=== PATIENT | male | born 1945 | race Caucasian/White ===

== ENCOUNTER → 2017-05-22 | Outpatient (CLI) | payer OTHER | END | disposition home or self-care (01) | LOC: LAB 13:37 | PROVIDERS: ATTEND Surgery | DX: Z02.1 Encounter for pre-employment examination (principal) | CPT/HCPCS: 36415; 86706; 86735; 86762; 86765; 86787 ==

== ENCOUNTER 2017-09-28 08:04 | Day surgery (SDC) | payer BC ==
[2017-09-24 10:02] LABS: Basophils # (auto) 0.1 uL; Hemoglobin 8.7 g/dL (13.5-17.5); Nucleated Red Blood Cells % 0.1 %
[2017-09-24 10:04] LABS: Eosinophils # (auto) 0.8 uL; Eosinophils % (auto) 8.3 % (0.0-7.0); Hematocrit 28.9 % (41.0-53.0); Lymphocytes # (auto) 1.8 uL; Lymphocytes % (auto) 18.9 % (10.0-50.0); Mean Corpuscular Hemoglobin 19.8 pg (28.0-32.0); Monocytes # (auto) 0.8 uL; Monocytes % (auto) 8.8 % (0.0-12.0); Platelet Count (auto) 297 10^3/uL (140-450); Red Blood Cells 4.37 10^6/uL (4.5-5.90); Red Cell Distribution Width 18.2 % (11.8-14.3); White Blood Cell 9.5 10^3/uL (4.4-10.8)
[2017-09-24 10:14] LABS: INR 1.03 (0.9-1.15); Prothrombin Time 11.2 sec (9.37-12.3)
[~2017-09-28] VITALS: Ht 172.7 cm; Wt 108.9 kg
[~2017-09-28 08:04] MED LIST: ASPI81TA27 PO; INSLANTI SC; LISI10TA6 PO; METF-372 PO
[2017-09-28] MEDS ORDERED: SODIUM CHLORIDE LOCK 10 ML ONE (08:17)
[2017-09-28] MEDS ORDERED: diphenhdrAMINE HCL 50 MG/1 ML VL ONE (08:18)
[2017-09-28] MEDS: MIDAZOLAM HCL 5 MG/ML-1ML VIAL ONE ×2 (08:54→09:01)
[2017-09-28] MEDS: fentaNYL CITRATE 100 MCG/2 ML VL ONE ×2 (08:54→09:01)
[2017-09-28 09:19] VITALS: BP 104/77
== END 2017-09-28 10:05 | disposition home or self-care (01) ==
LOC: GI 08:04
PROVIDERS: ATTEND Internal Medicine Gastroenterology
DX: Z12.11 Encounter for screening for malignant neoplasm of colon (principal); K64.8 Other hemorrhoids; K57.30 Diverticulosis of large intestine without perforation or abscess without bleeding; E66.9 Obesity, unspecified; Z68.36 Body mass index [BMI] 36.0-36.9, adult; E11.9 Type 2 diabetes mellitus without complications; Z90.49 Acquired absence of other specified parts of digestive tract; Z87.891 Personal history of nicotine dependence
CPT/HCPCS: 36415; 45378; 82962; 85025; 85610; J2250; J3010; J7030; 99152; 99153

== ENCOUNTER 2019-09-14 07:33 | Inpatient (IN) | payer BC, MEDICARE ==
[~2019-09-14] VITALS: Ht 172.7 cm; Wt 104.1 kg
[~2019-09-14 07:33] MED LIST changes: +ASPI-404 PO; -ASPI81TA27 PO
[2019-09-14] MEDS ORDERED: ACETAMINOPHEN 650 mg PER 20 mL UD GT ONE (07:45)
[2019-09-14 08:11] LABS: Basophils # (auto) 0.1 uL; Basophils % (auto) 0.3 % (0.0-2.0); Eosinophils # (auto) 0 uL; Eosinophils % (auto) 0.3 % (0.0-7.0); Hematocrit 41.3 % (41.0-53.0); Hemoglobin 13.7 g/dL (13.5-17.5); Lymphocytes # (auto) 0.6 uL; Lymphocytes % (auto) 3.3 % (10.0-50.0); Mean Corpuscular Hemoglobin 30.2 pg (28.0-32.0); Mean Corpuscular Hgb Conc. 33.2 g/dL (32.0-36.0); Mean Corpuscular Volume 90.9 fL (80.0-100.0); Monocytes # (auto) 0.9 uL; Monocytes % (auto) 5.2 % (0.0-12.0); Neutrophils # (auto) 15.7 uL; Neutrophils % (auto) 90.9 % (37.0-80.0); Platelet Count (auto) 211 10^3/uL (140-450); Red Blood Cells 4.55 10^6/uL (4.5-5.90); Red Cell Distribution Width 14.5 % (11.8-14.3); White Blood Cell 17.3 10^3/uL (4.4-10.8)
[2019-09-14 08:15] LABS: Urine Bacteria NONE SEEN /hpf (None Seen); Urine Blood Negative /uL (Negative); Urine Specific Gravity 1.023 (1.001-1.035); Urine WBC 1 /hpf (0 - 3)
[2019-09-14] MEDS ORDERED: SODIUM CHLORIDE 0.9% 1,000 ML IV ONE ×2 (08:30→08:44)
[2019-09-14 08:32] LABS: Alanine Aminotransferase 59 U/L (16-61); Albumin 3.3 g/dL (3.4-5.0); Anion Gap 8 (5-15); Aspartate Aminotransferase 41 U/L (15-37); BUN/Creatinine Ratio 15.8; Blood Urea Nitrogen 15 mg/dL (7-18); Calcium 8.8 mg/dL (8.5-10.1); Carbon Dioxide 23 mmol/L (21-32); Chloride 103 mmol/L (98-107); GFR African American 100 mL/min; GFR Non-African American 83 mL/min; Glucose 209 mg/dL (74-106); Potassium 3.7 mmol/L (3.5-5.1); Sodium 134 mmol/L (136-145)
[2019-09-14 08:40] LABS: Alkaline Phosphatase 109 U/L (45-117); Bilirubin, Total 0.6 mg/dL (0.2-1.0); Total Protein 8.3 g/dL (6.4-8.2)
[2019-09-14] MEDS ORDERED: SODIUM CHLORIDE 0.9% 500 ML IV ONE (08:44)
[2019-09-14] MEDS ORDERED: IBUPROFEN 800 MG TAB PO ONE (09:15)
[2019-09-14] MEDS ORDERED: CEFTRIAXONE SODIUM 2 GM in D5W 5% 50 ML IV ONE (09:15)
[2019-09-14] MEDS ORDERED: cefTRIAXone 1GM/50ML D5W 100 ML IV ONE (09:32)
[2019-09-14] MEDS: cefTRIAXone 1GM/50ML D5W 50 ML IV SCH ×2 (09:41→11:24)
[2019-09-14] MEDS ORDERED: SODIUM CHLORIDE 0.9% 1,000 ML IV SCH (12:41)
[2019-09-14] MEDS ORDERED: DEXTROSE (50%) 50ML SYRG IV PRN (12:45)
[2019-09-14] MEDS ORDERED: PROMETHAZINE HCL 25 MG/ML 1ML IV PRN (12:45)
[2019-09-14] MEDS ORDERED: LEVOFLOXACIN 500MG 100 ML IV ONE (12:45)
[2019-09-14] MEDS ORDERED: NITROGLYCERIN 0.4 MG SL TAB SL PRN (12:45)
[2019-09-14] MEDS ORDERED: TEMAZEPAM 15 MG CAP PO PRN (12:45)
[2019-09-14] MEDS ORDERED: ACETAMINOPHEN 500 MG TAB PO PRN (12:45)
[2019-09-14] MEDS ORDERED: ALBUTEROL SULF 2.5 MG/0.5ML(0.5%) NEB SOLN NEB PRN (12:45)
[2019-09-14] MEDS ORDERED: traMADol HCL 50 MG TAB PO PRN (12:45)
[2019-09-14] MEDS ORDERED: LACTULOSE 20Gm/30ML SOLN PO PRN (12:45)
[2019-09-14] MEDS ORDERED: MORPHINE SULF INJ 2 MG/ML SYRINGE 1ML IV PRN (12:45)
[2019-09-14] MEDS: SODIUM CHLORIDE 0.9% 1,000 ML IV SCH (13:29)
--- NOTE | 2019-09-14 14:50 | NUR ---
Telemetry admit from ER A[place]LE[place] admitted to Telemetry unit after SBAR received. Patient oriented to TEODORO RODRIGUEZ, primary RN, unit, room, bed, and unit policies regarding patient care and visiting hours. Patient now on continuous telemetry monitoring, tele box # [id number] and telemetry reading on arrival to unit is . Patient placed on bedside oxygen, weighed by bed scale and encouraged to call if they need something. All questions and concerns addressed, patient verbalized understanding.
[2019-09-14] MEDS: CLINDAMYCIN 600MG IV 50 ML IV SCH ×2 (15:36→21:04)
[2019-09-14] MEDS: MAGNESIUM SULFATE 1GM/100ML 100 ML IV SCH ×2 (16:14→17:19)
[2019-09-14 17:00] VITALS: BP 110/69
[2019-09-14] MEDS ORDERED: MAGNESIUM SULFATE 1GM/100ML 100 ML IV SCH (17:00)
[2019-09-14] MEDS: InsuLIN REG 1unit/0.01ml Soln (100units/ml) SC SCH ×2 (17:20→21:04)
[2019-09-14] MEDS: ACCU-CHEK COMFORT CURVE STRIP VI SCH ×2 (17:20→21:05)
[2019-09-14] MEDS ORDERED: ATO40T PO (17:25)
[2019-09-14] MEDS ORDERED: INSLANTI SC ×2 (17:25)
[2019-09-14] MEDS ORDERED: LISI-275 PO (17:25)
[2019-09-14] MEDS ORDERED: INSUINJ18 SC (17:25)
--- NOTE | 2019-09-14 19:30 | NUR ---
Opening Shift Note: A&Ox4, resting in bed. Room air, pain level 0/10, and ambulates independently without assistive devices. Bed locked in lowest position, side rails up x3, and call light within reach. IV 18 g in right forearm running NS at 100 ml/hr inserted on 09/14/19. Skin intact: left lower extremity presents with slight redness; no open wounds noted. Bilateral lower extremities +2 pitting edema; no open wounds. POC discussed and questions answered. Will continue to round prn.
--- NOTE | 2019-09-14 21:00 | NUR ---
Sputum culture sent to lab via bullet system.
[2019-09-14 21:58] VITALS: BP 127/72
--- NOTE | 2019-09-14 22:08 | NUR ---
Respiratory note: PT SEEN AND ASSESSED FOR PRN MED NEB TX AT 2208. TX NOT INDICATED AT THIS TIME. PT DISPLAYING NO SIGNS OF RESPIRATORY DISTRESS, HE STATES THAT HE HASN'T HAD ANY ISSUES BREATHING EXCEPT WHEN HE LIES DOWN FLAT. PT ALSO STATED HE IS USED TO SLEEPING IN A RECLINING CHAIR. BREATH SOUNDS WERE CLEAR AND DIMINISHED. HR 96 RR 18 POX 95% ON ROOM AIR.
[2019-09-15] VITALS (7 sets, daily range): BP systolic 109–138; BP diastolic 58–77
[2019-09-15] MEDS: SODIUM CHLORIDE 0.9% 1,000 ML IV SCH ×3 (01:30→16:21)
[2019-09-15 05:58] LABS: Basophils # (auto) 0 uL; Basophils % (auto) 0.2 % (0.0-2.0); Eosinophils # (auto) 0.1 uL; Eosinophils % (auto) 0.3 % (0.0-7.0); Hematocrit 35.3 % (41.0-53.0); Hemoglobin 11.8 g/dL (13.5-17.5); Lymphocytes # (auto) 1.4 uL; Lymphocytes % (auto) 6.6 % (10.0-50.0); Mean Corpuscular Hemoglobin 30.2 pg (28.0-32.0); Mean Corpuscular Hgb Conc. 33.3 g/dL (32.0-36.0); Mean Corpuscular Volume 90.7 fL (80.0-100.0); Monocytes # (auto) 1.5 uL; Monocytes % (auto) 7.3 % (0.0-12.0); Neutrophils # (auto) 17.9 uL; Neutrophils % (auto) 85.6 % (37.0-80.0); Platelet Count (auto) 169 10^3/uL (140-450); Red Blood Cells 3.89 10^6/uL (4.5-5.90); Red Cell Distribution Width 14.5 % (11.8-14.3); White Blood Cell 20.9 10^3/uL (4.4-10.8)
[2019-09-15] MEDS: InsuLIN REG 1unit/0.01ml Soln (100units/ml) SC SCH ×4 (05:58→21:54)
[2019-09-15] MEDS: ACCU-CHEK COMFORT CURVE STRIP VI SCH ×4 (05:58→21:53)
[2019-09-15] MEDS: CLINDAMYCIN 600MG IV 50 ML IV SCH ×3 (05:58→21:53)
--- NOTE | 2019-09-15 08:24 | NUR ---
Opening Shift Note Assumed care of patient, awake and alert, oriented x 4 and verbally responsive. Respiratory even and unlabored. No S/S of distress/SOB or pain. Skin is warm and dry to touch. No s/s of hyperglycemia or hypoglycemia noted. Instructed on POC and to call for assist PRN, will continue to monitor for changes Q1hr and PRN.
[2019-09-15] MEDS: ENOXAPARIN SOD 40 MG/0.4 ML SYRINGE SC SCH (09:11)
[2019-09-15] MEDS ORDERED: LEVOFLOXACIN 500MG 100 ML IV SCH (10:00)
--- NOTE | 2019-09-15 13:40 | NUR ---
Respiratory note: ASSESSED PT FOR PRN MED NEB AT THIS TIME, PT DENIES SOB AT THIS TIME, NO RESP DISTRESS NOTED, NO TX INDICATED, PULSE OX 92% ON RA, HR 189, RR 18, BILATERAL BS CLEAR. Informed pt to have RT paged if becomes SOB.
[2019-09-15] MEDS ORDERED: MAGNESIUM SULFATE 1GM/100ML 100 ML IV ONE (15:30)
[2019-09-15] MEDS ORDERED: LEVOFLOXACIN 250MG 50 ML IV ONE (15:30)
--- NOTE | 2019-09-15 19:15 | NUR ---
Respiratory note: AT BESIDE TO ASSESS PT FOR PRN TX, TX NOT INDICATED AT THIS TIME. PT ALERT AND ORIENTED. BS ARE CLEAR T/O. POX 94-96% ON RA , HR 90S. PT AWARE I CAN BE PAGED AT ANY TIME. RT NAME AND PAGER ASSIGNMENT WRITTEN ON PTS ROOM BOARD. WILL CONTINUE TO MONITOR.
--- NOTE | 2019-09-15 19:22 | NUR ---
Opening Shift Note Received report and assumed care of patient. Patient is awake and alert. No signs or symptoms of distress noted, patient denies pain. Instructed patient on plan of care and to call for assistance as needed, call light within reach. Will continue to monitor.
[2019-09-15] MEDS: INSULIN LANTUS (GLARGINE) 1 /0.01ml (100units/ml) SC SCH (21:53)
[2019-09-16 05:00] VITALS: BP 108/68
[2019-09-16 05:38] LABS: Basophils # (auto) 0 uL; Basophils % (auto) 0.1 % (0.0-2.0); Eosinophils # (auto) 0.3 uL; Eosinophils % (auto) 2.3 % (0.0-7.0); Hemoglobin 11.7 g/dL (13.5-17.5); Lymphocytes # (auto) 1.3 uL; Lymphocytes % (auto) 8.3 % (10.0-50.0); Mean Corpuscular Hgb Conc. 33.3 g/dL (32.0-36.0); Monocytes % (auto) 6.4 % (0.0-12.0); Neutrophils # (auto) 12.8 uL; Neutrophils % (auto) 82.9 % (37.0-80.0); Platelet Count (auto) 183 10^3/uL (140-450); Red Blood Cells 3.89 10^6/uL (4.5-5.90); Red Cell Distribution Width 14.3 % (11.8-14.3); White Blood Cell 15.4 10^3/uL (4.4-10.8)
[2019-09-16] MEDS: SODIUM CHLORIDE 0.9% 1,000 ML IV SCH ×3 (05:40→22:23)
[2019-09-16] MEDS: CLINDAMYCIN 600MG IV 50 ML IV SCH (05:41)
[2019-09-16 05:56] LABS: Potassium 3.9 mmol/L (3.5-5.1)
[2019-09-16 06:03] LABS: Albumin 2.5 g/dL (3.4-5.0); BUN/Creatinine Ratio 14.1; Bilirubin, Total 0.6 mg/dL (0.2-1.0); Calcium 8.5 mg/dL (8.5-10.1); Total Protein 6.9 g/dL (6.4-8.2)
[2019-09-16] MEDS: ACCU-CHEK COMFORT CURVE STRIP VI SCH ×4 (06:40→22:22)
[2019-09-16] MEDS: InsuLIN REG 1unit/0.01ml Soln (100units/ml) SC SCH ×4 (06:41→22:22)
--- NOTE | 2019-09-16 08:00 | NUR ---
Morning note patient resting in bed with even and unlabored respirations, no distress noted. Instructed patient on POC, fall precautions and to call for assistance as needed. Patient verbalized understanding. Fall precautions in place with call light within reach. Will continue to monitor q1hr & PRN.
[2019-09-16 08:41] VITALS: BP 117/57
[2019-09-16] MEDS: ENOXAPARIN SOD 40 MG/0.4 ML SYRINGE SC SCH (09:16)
[2019-09-16] MEDS: LEVOFLOXACIN 750MG 150 ML IV SCH (09:16)
[2019-09-16] MEDS: INSULIN LANTUS (GLARGINE) 1 /0.01ml (100units/ml) SC SCH ×2 (09:18→22:22)
--- NOTE | 2019-09-16 10:02 | NUR ---
Patient sitting in chair at bedside respirations even and unlabored, no distress noted. Call light within reach.
--- NOTE | 2019-09-16 10:38 | NUR ---
was at bedside - Dr. Shaikh HERNADEZ discussed with this RN.
--- NOTE | 2019-09-16 11:00 | NUR ---
Respiratory note: PT ASSESSED FOR PRN MED NEB. PT ON ROOM AIR SP02 94%. AWAKE ALERT AND RESPONSIVE. NO TREATMENT INDICATED AT THIS TIME.
[2019-09-16 13:00] VITALS: BP 122/66
[2019-09-16 17:00] VITALS: BP 128/63
--- NOTE | 2019-09-16 17:37 | NUR ---
Patient sitting in chair at bedside respirations even and unlabored, no distress noted. Call light within reach.
--- NOTE | 2019-09-16 18:47 | NUR ---
Closing note patient sitting in chair with even and unlabored respirations, no distress noted. Call light within reach.
--- NOTE | 2019-09-16 18:59 | NUR ---
Respiratory note: PT RECIEVED ON RA AT THIS TIME. PT IS IN NO RESP DISTRESS. PT AWAKE AND ALERT. PRN TX NOT INDICATED. SPO2 92%, HR 74, RR 20. BS CLR/DIM T/O.
--- NOTE | 2019-09-16 19:30 | NUR ---
Care endorsed to MARI Bloom.
--- NOTE | 2019-09-16 19:40 | NUR ---
Opening Shift Note Received report and assumed care of patient. Patient is awake and alert. No signs or symptoms of distress noted, patient currently denies pain. Instructed patient on plan of care and to call for assistance as needed, call light within reach. Will continue to monitor.
[2019-09-16 21:18] VITALS: BP 151/88
[2019-09-16 22:40] VITALS: BP 135/73
[2019-09-17 04:53] VITALS: BP 130/63
[2019-09-17 05:31] LABS: Basophils # (auto) 0 uL; Basophils % (auto) 0.4 % (0.0-2.0); Eosinophils # (auto) 0.5 uL; Eosinophils % (auto) 4.7 % (0.0-7.0); Hematocrit 38.2 % (41.0-53.0); Lymphocytes # (auto) 1.2 uL; Lymphocytes % (auto) 11.4 % (10.0-50.0); Mean Corpuscular Hemoglobin 30.7 pg (28.0-32.0); Mean Corpuscular Hgb Conc. 34.1 g/dL (32.0-36.0); Mean Corpuscular Volume 89.9 fL (80.0-100.0); Monocytes # (auto) 0.7 uL; Monocytes % (auto) 6.4 % (0.0-12.0); Neutrophils # (auto) 8.3 uL; Neutrophils % (auto) 77.1 % (37.0-80.0); Nucleated Red Blood Cells % 0.1 %; Platelet Count (auto) 219 10^3/uL (140-450); Red Blood Cells 4.25 10^6/uL (4.5-5.90); Red Cell Distribution Width 14.2 % (11.8-14.3); White Blood Cell 10.8 10^3/uL (4.4-10.8)
[2019-09-17] MEDS: ACCU-CHEK COMFORT CURVE STRIP VI SCH ×2 (06:22→11:35)
[2019-09-17] MEDS: InsuLIN REG 1unit/0.01ml Soln (100units/ml) SC SCH ×2 (06:23→11:39)
--- NOTE | 2019-09-17 08:00 | NUR ---
Morning note patient sitting in chair at bedside with even and unlabored respirations, no distress noted. Instructed patient on POC, fall precautions and to call for assistance as needed. Patient verbalized understanding. Fall precautions in place with call light within reach. Will continue to monitor q1hr & PRN.
[2019-09-17] MEDS: ENOXAPARIN SOD 40 MG/0.4 ML SYRINGE SC SCH (08:03)
[2019-09-17] MEDS: LEVOFLOXACIN 750MG 150 ML IV SCH (08:04)
[2019-09-17] MEDS: INSULIN LANTUS (GLARGINE) 1 /0.01ml (100units/ml) SC SCH (08:05)
[2019-09-17 08:38] VITALS: BP 124/72
--- NOTE | 2019-09-17 10:40 | NUR ---
Respiratory note: Assessed pt for prn medneb tx. HR 69, RR 16, POX 96% on room air. Breath sounds clear throughout. Pt denies any SOB, sitting up in chair, no s/s of respiratory distress. Medneb tx not indicated at this time. Advised pt to call for RT if needed.
--- NOTE | 2019-09-17 12:40 | NUR ---
was at bedside - Dr. Landrum
[2019-09-17 12:49] VITALS: BP 133/69
[2019-09-17] MEDS ORDERED: LEVO750T2 PO (13:10)
--- NOTE | 2019-09-17 14:35 | NUR ---
Discharge Discharge education and paperwork provided to the patient per MD order. Patient verbalized understanding. IV removed with clean technique, catheter intact. Dressing applied. Patient tolerated well, no trauma to site. Telemonitor removed and returned. Patient reports having all personal belongings. Respirations even and unlabored, no distress noted. Patient refused wheelchair. Patient ambulated with a steady gait to private vehicle. Patient's spouse to transport patient home.
== END 2019-09-17 14:37 | disposition home or self-care (01) | DRG 871 ==
LOC: ER 07:33 → TELE 07:34 → EEVIPCON 07:34 → TELE-WESTW 14:27
PROVIDERS: ADMIT Internal Medicine; ATTEND Internal Medicine
DX: A41.9 Sepsis, unspecified organism (principal); J18.1 Lobar pneumonia, unspecified organism; E44.1 Mild protein-calorie malnutrition; L03.116 Cellulitis of left lower limb; E87.1 Hypo-osmolality and hyponatremia; N39.0 Urinary tract infection, site not specified; E11.65 Type 2 diabetes mellitus with hyperglycemia; E83.42 Hypomagnesemia; N40.0 Benign prostatic hyperplasia without lower urinary tract symptoms; E66.9 Obesity, unspecified; E78.5 Hyperlipidemia, unspecified; B96.20 Unspecified Escherichia coli [E. coli] as the cause of diseases classified elsewhere; I10 Essential (primary) hypertension; F41.9 Anxiety disorder, unspecified; Z87.891 Personal history of nicotine dependence; Z90.49 Acquired absence of other specified parts of digestive tract; Z68.34 Body mass index [BMI] 34.0-34.9, adult
CPT/HCPCS: 36415; 71045; 71046; 71250; 80053; 80061; 81001; 82962; 83036; 83605; 83735; 84443; 84484; 85025; 85652; 87040; 87070; 87086; 87088; 87186; 87205; 87804; 93971; 96361; 96365; 96366; 96367; G0378; J0696; J1815; J1956; J3490; J7060